=== PATIENT | male | born 1995 | race Two or more races ===

== ENCOUNTER 2024-01-12 20:46 | Emergency (ER) | payer OTHER ==
[~2024-01-12] VITALS: Ht 190.5 cm; Wt 131.8 kg
[2024-01-13 00:05] VITALS: BP 119/52; PULSE 78; RESP 18; TEMP 98.4; O2SAT 98
[2024-01-13] MEDS: KETOROLAC TROMETH 60MG/2ML VIAL IM ONE (00:12)
[2024-01-13] MEDS ORDERED: IBUP-1456 PO (01:06)
[2024-01-13] MEDS ORDERED: METH-1182 PO (01:06)
== END 2024-01-13 01:11 | disposition home or self-care (01) ==
LOC: ER 20:46
DX: S29.012A Strain of muscle and tendon of back wall of thorax, initial encounter (principal); S39.012A Strain of muscle, fascia and tendon of lower back, initial encounter; S20.211A Contusion of right front wall of thorax, initial encounter; V43.62XA Car passenger injured in collision with other type car in traffic accident, initial encounter; Y93.89 Activity, other specified; Y92.488 Other paved roadways as the place of occurrence of the external cause; Y99.8 Other external cause status
CPT/HCPCS: 71101; 72070; 72100; 96372; 99284; J1885